=== PATIENT | female | born 1945 | race Caucasian/White ===

== ENCOUNTER 2024-02-22 13:02 | Emergency (ER) | payer MEDICARE, SELFPAY ==
--- NOTE | 2024-02-22 13:08 | XRR_ITS ---
PROCEDURE INFORMATION: Exam: XR Chest Exam date and time: 02/22/2024 1:23 PM Age: 78 years old Clinical indication: Cough; Additional info: Psychiatric work up TECHNIQUE: Imaging protocol: Radiologic exam of the chest. Views: 1 view. COMPARISON: No relevant prior studies available. FINDINGS: Lungs: Unremarkable. No consolidation. Pleural spaces: Unremarkable. No pleural effusion. No pneumothorax. Heart/Mediastinum: Unremarkable. No cardiomegaly. Bones/joints: Unremarkable. XR/XR chest 1V portable [id number] IMPRESSION: No acute findings.
[2024-02-22 13:14] VITALS: BP 142/81; PULSE 96; RESP 18; TEMP 36.7; O2SAT 97
--- NOTE | 2024-02-22 13:23 | ECG_ITS ---
[facility] Date: 2024-02-22 Pat Name: Susana Byrne Department: Room: Gender: Female [employer]ic: : 1945 Requested By: Magnolia Patricia Order Number: [id number] Mandeep MD: ANGEL FORBES Measurements Intervals [place] Rate: 83 P: -6 LA: 126 QRS: 70 QRSD: 83 T: 58 QT: 369 QTc: 436 Interpretive Statements SINUS RHYTHM No previous ECG available for comparison Electronically Signed On 02-23-2024 23:23:35 IT NETWORK ADMINISTRATOR by ANGEL FORBES [id number]
--- NOTE | 2024-02-22 13:27 | ED.C_ITS ---
HPI - Psych 2 General: Chief Complaint: Psychiatric Symptoms Stated Complaint: 96 hr hold Time Seen by Provider: 02/22/24 13:04 History of Present Illness: 78-year-old female with a history of rep orted dementia who presents emergency room with police on a 96-hour hold set by a document specialist. They are wanting her placed in a psychiatric facility. However apparently it was not known that we do not have geriatric psychiatry here. Patient is pleasantly confused. 96 states that she was evicted from her residence and is currently homeless. Related Data Home Medications Medication Instructions Recorded Confirmed No Known Home Medications 02/22/24 02/22/24 Review of Systems 2 Narrative: Constitutional symptoms: Negative except as documented in HPI. Skin symptoms: Negative except as documented in HPI. Eye symptoms: Negative except as documented in HPI. ENMT symptoms: Negative except as documented in HPI. Respiratory symptoms: Negative except as documented in HPI. Cardiovascular symptoms: Negative except as documented in HPI. Gastrointestinal symptoms: Negative except as documented in HPI. Genitourinary symptoms: Negative except as documented in HPI. Musculoskeletal symptoms: Negative except as documented in HPI. Neurologic symptoms: Negative except as documented in HPI. Psychiatric symptoms: Negative except as documented in HPI. Endocrine symptoms: Negative except as documented in HPI. Physical Exam 2 Narrative: EXAM NARRATIVE: General: Alert, no acute distress. Skin: Warm, dry. Head: Normocephalic, atraumatic. Neck: Supple, trachea midline. Eye: Extraocular movements are intact. Ears, nose, mouth and throat: mucosa moist. Cardiovascular: Regular, Normal peripheral perfusion. Respiratory: Lungs are clear to auscultation, respirations are non-labored, breath sounds are equal, Symmetrical chest wall expansion. Gastrointestinal: Soft, Nontender, Non distended, Normal bowel sounds. Musculoskeletal: Normal ROM, no deformity. Neurological: Alert, No focal neurological deficit observed. Psychiatric: Patient seems confused/demented. Course 2 Vital Signs: Vital signs: Vital Signs Temperature 98.1 F 02/22/24 13:14 Pulse Rate 96 02/22/24 13:14 Respiratory Rate 18 02/22/24 13:14 Blood Pressure 142/81 02/22/24 13:14 Pulse Oximetry 97 02/22/24 13:14 Oxygen Delivery Me thod Room Air 02/22/24 13:14 MDM - Psych Medical Decision Making Medical decision making: Differential diagnosis for a geriatric patient with worsening dementia/behavioral problems including but not limited to and based on the above HPI, review of systems and physical exam: Concerns for infection such as UTI or pneumonia. Alcohol intoxication. Cardiac issues or other medical problems to be ruled out prior to a geriatric/psychiatric admission Chest x-ray: No acute process. No infiltrate. No pneumothorax. This was reviewed and interpreted by myself the emergency room physician. I also reviewed the radiology report. EKG: Normal sinus rhythm, No ST-T changes, no ectopy, normal TX & QRS intervals, This was reviewed and interpreted by myself the ER physician Orders placed to evaluate differential diagnosis based on the above differential, HPI and physical exam Lab work, chest X-ray and ekg ordered to evaluate the pathologies and to clear the patient medically prior Lab Review: Laboratory results were reviewed and interpreted by myself the emergency room physician. - Medically cleared. - EKG shows no ischemic changes. - Blood alcohol level is negative, as well as salicylate and Tylenol. - Drug screen is negative - No signs of infection, urinalysis clear and white count is not elevated. Chest x-ray clear - No anemia. - BUN and creatinine are within normal limits. ?Flu and COVID were negative. Assessment and plan: Dementia 96-hour hold placed by a document specialist -Transfer to geriatric neuropsychiatric facility for continued evaluation and treatment. - All lab work was reviewed and interpreted personally by myself, the ER physician - Evaluation and treatment of this problem were appropriate in the emergency setting Lab Data 02/22/24 13:30 02/22/24 13:30 Radiology Impressions Chest X-Ray 02/22/24 13:08 IMPRESSION: No acute findings. Laboratory Results WBC 4.25 10^3/uL (3.29-11.43) 02/22/24 13:30 RBC 4.28 10^6/uL (3.85-5.65) 02/22/24 13:30 Hgb 13.20 g/dL (11.27-16.99) 02/22/24 13:30 Hct 40.7 % (36-47) 02/22/24 13:30 MCV 95.1 fl (85-98) 02/22/24 13:30 MCH 30.8 pg (27-33) 02/22/24 13:30 MCHC 32.4 g/dL (30-55) 02/22/24 13:30 RDW 13.3 % (12.1-15.1) 02/22/24 13:30 Plt Count 198 10^3/cmm (157-399) 02/22/24 13:30 MPV 8.9 fL (7.4-10.4) 02/22/24 13:30 Neut % (Auto) 57.2 % 02/22/24 13:30 Lymph % (Auto) 30.1 % 02/22/24 13:30 [place] % (Auto) 9.4 % 02/22/24 13:30 Eos % (Auto) 2.1 % 02/22/24 13:30 Baso % (Auto) 0.7 % 02/22/24 13:30 Neut # (Auto) 2.43 10^3/uL (1.8-7.7) 02/22/24 13:30 Lymph # (Auto) 1.3 10^3/uL (0.8-4.8) 02/22/24 13:30 [place] # (Auto) 0.4 10^3/uL (0.2-0.9) 02/22/24 13:30 Eos # (Auto) 0.1 10^3/uL (0.0-0.8) 02/22/24 13:30 Baso # (Auto) 0.0 10^3/uL (0.0-0.1) 02/22/24 13:30 Nucleated RBC % (auto) 0 % 02/22/24 13:30 Nucleated RBCs # 0.0 /100WBC 02/22/24 13:30 Sodium 135 mmol/L (136-145) L 02/22/24 13:30 Potassium 4.2 mmol/L (3.5-5.1) 02/22/24 13:30 Chloride 99 mmol/L (98-107) 02/22/24 13:30 Carbon Dioxide 23 mmol/L (22-29) 02/22/24 13:30 Anion Gap 17.2 (5-19) 02/22/24 13:30 BUN 15 mg/dL (8-23) 02/22/24 13:30 Creatinine 0.9 mg/dL (0.5-0.9) 02/22/24 13:30 GFR Calculation Not Reportable 02/22/24 13:30 Glucose 107 mg/dL (65-115) 02/22/24 13:30 Calculated Osmolality 281 mOsm/kg (285-295) L 02/22/24 13:30 Calcium 8.8 mg/dL (8.5-10.5) 02/22/24 13:30 Total Bilirubin 0.4 mg/dL (0.15-1.2) 02/22/24 13:30 AST 33 U/L (0-32) H 02/22/24 13:30 ALT 22 U/L (0-33) 02/22/24 13:30 Alkaline Phosphatase 75 U/L (35-105) 02/22/24 13:30 Total Protein 6.6 g/dL (6.6-8.7) 02/22/24 13:30 Albumin 3.8 g/dL (3.5-5.2) 02/22/24 13:30 Globulin 2.8 g/dL (1.3-4.6) 02/22/24 13:30 TSH 1.34 uIU/mL (0.27-4.20) 02/22/24 13:30 Urine Color Yellow (Yellow) 02/22/24 15:05 Urine Appearance Clear (CLEAR) 02/22/24 15:05 Urine pH 7.0 (5-7) 02/22/24 15:05 Ur Specific [place] 1.002 (1.005-1.030) L 02/22/24 15:05 Urine Protein Negative (Negative) 02/22/24 15:05 Urine Glucose (UA) Negative (Normal) 02/22/24 15:05 Urine Ketones Negative (Negative) 02/22/24 15:05 Urine Blood Negative (Negative) 02/22/24 15:05 Urine Nitrate Negative (Negative) 02/22/24 15:05 Urine Bilirubin Negative (Negative) 02/22/24 15:05 Urine Urobilinogen 0.2 mg/dL (Negative) 02/22/24 15:05 Ur Leukocyte Esterase Negative (Negative) 02/22/24 15:05 Urine RBC 0-2 /hpf (0-2) 02/22/24 15:05 Urine WBC 0-5 /hpf (0-5) 02/22/24 15:05 Ur Squamous Epith Cells 0-5 /hpf (0-5) 02/22/24 15:05 Amorphous Sediment Not Reportable 02/22/24 15:05 Urine Bacteria None seen /hpf (NONE) 02/22/24 15:05 Hyaline Casts 0-4 /lpf H 02/22/24 15:05 Urine Opiates Screen Negative ng/mL (Negative) 02/22/24 15:05 Acetaminophen < 5.0 ug/mL (10-30) L 02/22/24 13:30 Ur Barbiturates Screen Negative ng/mL (Negative) 02/22/24 15:05 Ur Phencyclidine Scrn Negative ng/mL (Negative) 02/22/24 15:05 Ur Amphetamines Screen Negative ng/mL (Negative) 02/22/24 15:05 U Benzodiazepines Scrn Negative ng/mL (Negative) 02/22/24 15:05 Urine Cocaine Screen Negative ng/mL (Negative) 02/22/24 15:05 U Marijuana (THC) Screen Negative ng/mL (Negative) 02/22/24 15:05 Ethyl Alcohol < 10 mg/dL (0-10) 02/22/24 13:30 Influenza Type A Ag negative (Negative) 02/22/24 13:02 Influenza Type B Ag negative (Negative) 02/22/24 13:02 SARS-CoV-2 Ag (Rapid) negative (Negative) 02/22/24 13:02 All radiology interpretation(s) finalized by discharge Discharge Plan Discharge Patient Disposition: Xfer Psychiatric Hosp Clinical Impression: Dementia Condition: Stable Coding Level of Care Code ED [employer] Supervisor for Aubrey Nielson
[2024-02-22 13:45] LABS: Basophils % 0.7 %; Eosinophils # 0.1 10^3/uL (0.0-0.8); Eosinophils % 2.1 %; Hematocrit 40.7 % (36-47); Lymphocytes # 1.3 10^3/uL (0.8-4.8); Lymphocytes % 30.1 %; Mean Corpuscular HGB Conc 32.4 g/dL (30-55); Mean Corpuscular Hemoglobin 30.8 pg (27-33); Mean Corpuscular Volume 95.1 fl (85-98); Mean Platelet Volume 8.9 fL (7.4-10.4); Monocytes # 0.4 10^3/uL (0.2-0.9); Monocytes % 9.4 %; Neutrophils # 2.43 10^3/uL (1.8-7.7); Neutrophils % 57.2 %; Nucleated Red Blood Cells % 0 %; Platelet Count 198 10^3/cmm (157-399); Red Blood Count 4.28 10^6/uL (3.85-5.65); Red Cell Distribution Width 13.3 % (12.1-15.1); White Blood Count 4.25 10^3/uL (3.29-11.43)
--- NOTE | 2024-02-22 14:04 | PC.NURSE ---
96 hour hold read and reviewed with patient. Patient stated I am unsure why I am here, this is all political. I was just trying to help my boyfriend and these two ladies are doing this to me. This is all political. This nurse explained the 96 hour hold process and patient verbalized understandings. Copy of rights given to patient.
--- NOTE | 2024-02-22 14:04 | PC.NURSE ---
this nurse and Blood Tester Fowl assisted pt in removing belongings, changing into green paper scrubs. pt has personal sweater, [employer] Tester Fowl aware. security notified to inventory personal belongings
[2024-02-22 14:13] LABS: Alanine Aminotransferase 22 U/L (0-33); Albumin Level 3.8 g/dL (3.5-5.2); Alkaline Phosphatase 75 U/L (35-105); Anion Gap 17.2 (5-19); Aspartate Amino Transferase 33 U/L (0-32); Blood Urea Nitrogen 15 mg/dL (8-23); Calcium 8.8 mg/dL (8.5-10.5); Carbon Dioxide 23 mmol/L (22-29); Chloride 99 mmol/L (98-107); Globulin 2.8 g/dL (1.3-4.6); Glucose 107 mg/dL (65-115); Osmolality Calculated 281 mOsm/kg (285-295); Potassium 4.2 mmol/L (3.5-5.1); Sodium 135 mmol/L (136-145); Thyroid Stimulating Hormone 1.34 uIU/mL (0.27-4.20); Total Bilirubin 0.4 mg/dL (0.15-1.2); Total Protein 6.6 g/dL (6.6-8.7)
[2024-02-22 14:15] LABS: Acetaminophen < 5.0 ug/mL (10-30); Alcohol Level < 10 mg/dL (0-10)
[2024-02-22 14:26] LABS: Influenza A by IFA negative (Negative); Influenza B by IFA negative (Negative)
[2024-02-22 14:27] LABS: SARS Covid-2 Antigen negative (Negative)
[2024-02-22 15:14] LABS: Bilirubin Urine Negative (Negative); Blood Urine Negative (Negative); Glucose Urine UA Negative (Normal); Ketones Urine Negative (Negative); Leukocyte Esterase Urine Negative (Negative); Nitrate Urine Negative (Negative); Protein Urine Negative (Negative); Specific Gravity, Urine 1.002 (1.005-1.030); Urine Appearance Clear (CLEAR); Urine Color Yellow (Yellow); Urobilinogen Urine 0.2 mg/dL (Negative)
[2024-02-22 15:17] LABS: Bacteria Urine None Seen /hpf; Hyaline Casts Urine 0-4 /lpf; RBC Urine 0-2 /hpf (0-2); Squamous Epithelial Cell Urine 0-5 /hpf (0-5); WBC Urine 0-5 /hpf (0-5)
[2024-02-22 15:19] LABS: Amphetamines Screen Urine Negative (Negative); Barbiturates Screen Urine Negative (Negative); Benzodiazepines Screen Urine Negative (Negative); Cocaine Screen Urine Negative (Negative); Opiate Screen Urine Negative (Negative); PCP Screen Urine Negative (Negative); THC Screen Urine Negative (Negative)
[2024-02-22 18:05] LABS: Covid PCR NEGATIVE (Negative); Influenza A NEGATIVE (Negative); Influenza B NEGATIVE (Negative); Respiratory Syncytial Virus Ce NEGATIVE (Negative)
[2024-02-22 18:21] VITALS: BP 108/60; PULSE 88; RESP 18; O2SAT 97
[2024-02-23 08:27] VITALS: BP 166/84; PULSE 86; O2SAT 98
== END 2024-02-23 08:20 ==
PROVIDERS: Emergency Provider Emergency Medicine
DX: F03.90 Unspecified dementia, unspecified severity, without behavioral disturbance, psychotic disturbance, mood disturbance, and anxiety (principal); Z11.52 Encounter for screening for COVID-19
CPT/HCPCS: 36415; 71045; 80053; 80306; 80307; 81001; 84443; 85025; 87426; 87637; 87804; 93005; 99285